=== PATIENT | female | born 1950 | race Caucasian/White ===

== ENCOUNTER 2024-06-28 07:36 | Day surgery (SDC) | payer BC ==
[~2024-06-28 07:36] MED LIST: Lactated Ringers 1,000 ML IV SCH
[2024-06-28] MEDS ORDERED: fentaNYL 100 MCG/2 ML SDV ONE (07:55)
[2024-06-28] MEDS ORDERED: Propofol 200 MG/20 ML SDV ONE ×2 (07:55→09:25)
[2024-06-28] MEDS: Lactated Ringers 1,000 ML IV SCH (08:59)
[2024-06-28 10:16] VITALS: BP 157/73; PULSE 66
[2024-06-29] MEDS ORDERED: Lactated Ringers 1,000 ML IV SCH (07:00)
== END 2024-06-28 11:04 | disposition home or self-care (01) ==
LOC: VM.SDS 07:36
PROVIDERS: ATTEND Family Medicine
DX: Z12.11 Encounter for screening for malignant neoplasm of colon (principal); D12.2 Benign neoplasm of ascending colon; Q43.8 Other specified congenital malformations of intestine; E78.00 Pure hypercholesterolemia, unspecified; Z88.8 Allergy status to other drugs, medicaments and biological substances; Z86.16 Personal history of COVID-19; Z91.040 Latex allergy status; Z79.899 Other long term (current) drug therapy
CPT/HCPCS: 45380; 45385; J2704; J3010; J7120; 00811; 99100